=== PATIENT | female | born 1950 | race Caucasian/White ===

== ENCOUNTER 2019-11-23 21:56 | Emergency (ER) | payer MEDICARE ==
[~2019-11-23] VITALS: Ht 162.6 cm; Wt 52.3 kg
[2019-11-24 00:28] VITALS: BP 129/78
== END 2019-11-24 00:30 | disposition home or self-care (01) ==
LOC: ER 21:57 → EDBD 21:57 → ER 11-24 00:30
DX: S09.90XA Unspecified injury of head, initial encounter (principal); S01.01XA Laceration without foreign body of scalp, initial encounter; S60.221A Contusion of right hand, initial encounter; S50.311A Abrasion of right elbow, initial encounter; Z72.89 Other problems related to lifestyle; W01.198A Fall on same level from slipping, tripping and stumbling with subsequent striking against other object, initial encounter; Y93.89 Activity, other specified; Y92.89 Other specified places as the place of occurrence of the external cause; Y99.8 Other external cause status
CPT/HCPCS: 12001; 70450; 99284